=== PATIENT | female | born 1960 | race Caucasian/White ===

== ENCOUNTER 2017-12-28 08:54 | Outpatient (CLI) | payer OTHER ==
[2017-12-28] MEDS ORDERED: Iopamidol 370 76% 100 ML VIAL ONE (15:39)
== END 2017-12-28 08:55 | disposition home or self-care (01) ==
LOC: BICCT 08:54
PROVIDERS: ATTEND Physician Assistant
DX: R51 Headache (principal); R42 Dizziness and giddiness
CPT/HCPCS: 70470

== ENCOUNTER 2018-03-17 14:41 | Outpatient (CLI) | payer OTHER ==
--- NOTE | 2018-03-17 16:10 | MRI ---
MRI CERVICAL SPINE WITHOUT CONTRAST: TECHNIQUE: Multiplanar, multisequential imaging of the cervical spine obtained. INDICATION: Neck pain. Strain of neck muscle. FINDINGS: The cervical vertebrae maintain height and alignment. Moderate degenerative changes are noted with s purring from the anterior vertebrae. Loss of disk space seen at all levels of the cervical spine. At C3-4, posterior disk bulge and spondylosis impinge on and mildly flatten the anterior cord. Right foraminal narrowing due to facet and uncinate hypertrophy. Right foraminal narrowing due to facet a nd uncinate hypertrophy is seen at this level. At C4-5, mild posterior disk bulge and spondylosis efface the anterior subarachnoid space. At C5-6, disk bulge and spondylosis abut the anterior cord. Facets encroach bilaterally at this leve l due to facet and uncinate hypertrophy. At C6-7, disk bulge and spondylosis efface the anterior subarachnoid space. Right foraminal narrowin g due to facet and uncinate hypertrophy. Cord signal appears normal. IMPRESSION: Posterior disk bulge and spondylosis is seen from C3 through C7 as described above. Findings are mos t pronounced at C3-4 and C5-6 as described above. POS: [facility]
== END 2018-03-17 14:42 | disposition home or self-care (01) ==
LOC: SCSMRI 14:41
PROVIDERS: ATTEND Family Medicine
DX: S16.1XXA Strain of muscle, fascia and tendon at neck level, initial encounter (principal); M47.892 Other spondylosis, cervical region; M50.81 Other cervical disc disorders, high cervical region
CPT/HCPCS: 72141

== ENCOUNTER 2018-04-30 09:53 | Outpatient (CLI) | payer BC | END 2018-04-30 09:54 | disposition home or self-care (01) | LOC: BICMAMMO 09:53 | PROVIDERS: ATTEND Obstetrics & Gynecology | DX: Z12.31 Encounter for screening mammogram for malignant neoplasm of breast (principal); Z78.0 Asymptomatic menopausal state; R92.1 Mammographic calcification found on diagnostic imaging of breast; M85.89 Other specified disorders of bone density and structure, multiple sites | CPT/HCPCS: 77063; 77067; 77080 ==

== ENCOUNTER 2019-08-12 08:09 | Outpatient (CLI) | payer BC ==
[2019-08-12] MEDS ORDERED: Gadobenate Dimeglumine 529 MG/1 ML (20ML VIAL) ONE (09:00)
--- NOTE | 2019-08-12 09:40 | MRI ---
MRI LUMBAR SPINE WITH AND WITHOUT CONTRAST: 08/12/2019 HISTORY: Low back pain, spondylolisthesis. COMPARISON: MRI lumbar spine without contrast 08/10/2015. TECHNIQUE: Multiplanar, multisequence MR imaging of the lumbar spine with and without contrast. FINDINGS: There is a left L5 and L4 pedicle screw with a vertically oriented interlocking cathryn. The sagittal STI R imaging demonstrates no focal area of osseous marrow edema. There is 4 mm of anterolisthesis of L4 on L5, grossly unchanged when compared to the prior exam. On the basis of five lumbar type vertebral bodies, the conus medullaris terminates at the L1 level. T12-L1: Mild bilateral facet hypertrophy. Intervertebral disc height and signal intensity is within n ormal limits with no significant central canal or neural foraminal stenosis. L1-L2: Mild bilateral facet hypertrophy. Intervertebral disc height and signal intensity is within no rmal limits with no central canal or neural foraminal stenosis. L2-L3: Mild bilateral facet hypertrophy. Intervertebral disc height and signal intensity is within no rmal limits with no significant central canal or neural foraminal stenosis. L3-L4: There is disc space narrowing with disc desiccation and mild disc bulge, slightly more promine nt than on the prior exam. Bilateral facet hypertrophy noted with ligamentum flavum hypertrophy. There is bilateral neural foraminal stenosis, moderate on the right and mild on the left, not signifi cantly changed. L4-L5: There is disc space narrowing, disc desiccation and mild disc bulge, stable. There is bilatera l facet hypertrophy and hypertrophy of the ligamentum flavum, left greater than right. The T2 hyperintense lesion seen on the prior examination on the right at the L4-L5 level is no longer present. On this exam there is no significant central canal stenosis. There is moderate/severe neural foraminal stenosis on the right, stable. There is mild left neural foraminal stenosis. L5-S1: Bilateral facet hypertrophy. No significant central canal stenosis or neural foraminal stenosi s. The patient appears status post bilateral laminectomy at the L5 level. Post contrast imaging demonstrates no abnormal enhancement involving contents of the thecal sac, imag ed osseous structures or imaged intervertebral discs. There is a tiny distal thoracic cord syrinx, unchanged when compared to the 2015 exam. IMPRESSION: Postoperative and degenerative change within the lumbar spine as detailed above. Transcribed Date/Time: 08/12/2019 10:26 AM
--- NOTE | 2019-08-12 10:10 | RAD ---
LUMBAR SPINE RADIOGRAPH: Date: 08/12/19 INDICATION: History of back surgery. COMPARISON: Prior exam dated 11/12/15. FINDINGS: Unilateral pedicular screws on the left at L4-5 appear similar appearing. Lucency surrounding the lef t L4 pedicle screw appears slightly more accentuated. Findings can be seen with loosening. Grade I an terolisthesis of L4 on L5 is similar appearing. Moderate disc degenerative disease at L3-4, L4-5, an d L5-S1 is similar appearing. There has been some interval development of some retrolisthesis of L3 o n L4 that reduces with flexion and is stable with extension. IMPRESSION: 1. Suspected adjacent segment degeneration at L3-4 with new retrolisthesis of L3 on L4 that reduces with flexion. Stable Grade I anterolisthesis of L4 on L5. 2. Lucency surrounding the left L4 pedicle screw can be seen with loosening. This appears slightly m ore accentuated than on the prior examination. POS: OFF
--- NOTE | 2019-08-12 10:33 | ULT ---
RIGHT UPPER QUADRANT ULTRASOUND: Date: 08/12/19 INDICATION: Elevation of the patient's liver enzymes. COMPARISON: None. FINDINGS: No focal hepatic lesion is evident. Visualized aspects of the pancreas appear within normal limits. V isualized gallbladder normal appearing. Appropriate hepatopetal flow is present. No sonographic Aakash y's sign is reported. Common bile duct measures 3.6 mm. Right kidney measures 11.7 x 4.4 x 4.6 cm. IMPRESSION: No acute sonographic abnormality demonstrated. POS: OFF
== END 2019-08-12 08:10 | disposition home or self-care (01) ==
LOC: SCSULT 08:09
PROVIDERS: ATTEND Internal Medicine Rheumatology
DX: M43.16 Spondylolisthesis, lumbar region (principal); M54.5 Low back pain; R74.8 Abnormal levels of other serum enzymes; M47.816 Spondylosis without myelopathy or radiculopathy, lumbar region; Z98.890 Other specified postprocedural states
CPT/HCPCS: 72110; 72158; 76705; A9577

== ENCOUNTER 2021-11-04 08:57 | Outpatient (CLI) | payer BC | END 2021-11-04 08:58 | disposition home or self-care (01) | LOC: TBSIIMAG 08:57 | PROVIDERS: ATTEND Neurological Surgery | DX: M43.16 Spondylolisthesis, lumbar region (principal); M54.2 Cervicalgia; M47.812 Spondylosis without myelopathy or radiculopathy, cervical region; Z98.1 Arthrodesis status; M43.12 Spondylolisthesis, cervical region | CPT/HCPCS: 72040; 72110 ==

== ENCOUNTER 2022-05-20 06:56 | Day surgery (SDC) | payer BC ==
[2022-05-20 11:34] VITALS: BP 136/80; TEMP 98; BMI 22.1
[2022-05-20] MEDS ORDERED: Iopamidol-M 200 41% 20 ML VIAL ONE (12:00)
== END 2022-05-20 10:50 | disposition home or self-care (01) ==
LOC: RAD 06:56
PROVIDERS: ATTEND Neurological Surgery
PROC: B01B1ZZ Fluoroscopy of Spinal Cord using Low Osmolar Contrast (ICD-10-PCS; principal; 2022-05-20)
DX: M47.26 Other spondylosis with radiculopathy, lumbar region (principal); M51.16 Intervertebral disc disorders with radiculopathy, lumbar region; M48.061 Spinal stenosis, lumbar region without neurogenic claudication; M47.817 Spondylosis without myelopathy or radiculopathy, lumbosacral region; M48.07 Spinal stenosis, lumbosacral region; M47.815 Spondylosis without myelopathy or radiculopathy, thoracolumbar region; M50.31 Other cervical disc degeneration, high cervical region; M48.02 Spinal stenosis, cervical region; M50.222 Other cervical disc displacement at C5-C6 level; M47.813 Spondylosis without myelopathy or radiculopathy, cervicothoracic region; M48.03 Spinal stenosis, cervicothoracic region; M43.16 Spondylolisthesis, lumbar region; Z79.899 Other long term (current) drug therapy; Z88.5 Allergy status to narcotic agent; Z98.1 Arthrodesis status
CPT/HCPCS: 62304; 72132; 72141; Q9966

== ENCOUNTER 2022-06-10 15:31 | Outpatient (CLI) | payer BC | END 2022-06-10 15:32 | disposition home or self-care (01) | LOC: BICMAMMO 15:31 | PROVIDERS: ATTEND Internal Medicine Rheumatology | DX: Z13.820 Encounter for screening for osteoporosis (principal); Z78.0 Asymptomatic menopausal state; M85.851 Other specified disorders of bone density and structure, right thigh; M85.852 Other specified disorders of bone density and structure, left thigh | CPT/HCPCS: 77080 ==